=== PATIENT | female | born 1990 | race Caucasian/White ===

== ENCOUNTER 2018-12-27 10:00 | Inpatient (IN) ==
[2018-12-27] MEDS ORDERED: *HR* Nalbuphine 10 MG/ML AMPUL IVP PRN (10:49)
[2018-12-27] MEDS ORDERED: Ondansetron 4 MG/2 ML VIAL IVP PRN (10:49)
[2018-12-27] MEDS ORDERED: Famotidine 20 MG/2 ML VIAL IVP PRN (10:49)
[2018-12-27] MEDS ORDERED: Naloxone 0.4 MG/ML INJ IVP PRN (10:49)
[2018-12-27] MEDS ORDERED: Metoclopramide 10 MG/2 ML VIAL IVP PRN (10:49)
[2018-12-27] MEDS ORDERED: miSOPROStol 25 MCG TABLET VG PRN (10:52)
[2018-12-27] MEDS ORDERED: Ringers Solution, Lactated 1,000 ML IVC SCH (11:00)
[2018-12-27 11:20] LABS: Basophils % 0.2 %; Eosinophils # 0.1 K/mcL (0.0-0.6); Hematocrit 35.8 % (35.3-44.9); Hemoglobin 11.9 g/dL (11.5-15.4); Immature Granulocytes % 0.8 % (0-4); Lymphocytes # 1.4 K/mcL (0.6-4.6); Lymphocytes % 17.1 %; Mean Corpuscular HGB Conc 33.2 g/dL (31.6-35.5); Mean Corpuscular Hemoglobin 29.4 pg (28.0-33.3); Mean Corpuscular Volume 88.4 fL (83.0-100.0); Mean Platelet Volume 12.8 fL (9.4-12.4); Monocytes # 0.5 K/mcL (0.0-1.3); Monocytes % 6.3 %; Neutrophils # 6.2 K/mcL (1.6-8.9); Platelet Count 140 K/mcL (140-400); Red Blood Count 4.05 M/mcL (3.82-4.97); Red Cell Distribution Width 13.8 % (11.5-14.5); Segmented Neutrophils % 74.6 %
[2018-12-27 11:33] LABS: Amphetamine Screen,Urine Negative ng/mL (Cutoff=1000); Barbiturate Screen,Urine Negative ng/mL (Cutoff=200); Benzodiazepines Screen,Urine Negative ng/mL (Cutoff=200); Cannabinoid Screen,Urine Negative ng/mL (Cutoff = 50); Cocaine Screen,Urine Negative ng/mL (Cutoff= 300); Opiate Screen,Urine Negative ng/mL (Cutoff=300); Phencyclidine Screen,Urine Negative ng/mL (Cutoff=25)
--- NOTE | 2018-12-27 13:53 | Event Note ---
Date of Encounter: 12/27/18 Time of Encounter: 13:50 Patient admitted for cholestasis of . On presentation her cervix was fingertip thick and high. Patient with Cervidil with 25 mg of Cytotec vaginally. I just rechecked her cervix. There is been minimal change of her cervix. The cervix itself is very thick. I cannot get all the way in. is ballotable. We will place another Cytotec and then recheck to see if Herman can be placed.
--- NOTE | 2018-12-27 17:52 | Event Note ---
Date of Encounter: 12/27/18 Time of Encounter: 17:50 Patient has had one dose of Cytotec had 1135. She is continued to contract every 2-4 minutes since that time. We have been unable to give a second dose. At last examination her cervix was fingertip and thick. I was able to get through the cervix. At this check I was able to get is fingertip all the way through the cervix. She is now 1 thick and high. A 60 mL Herman was placed with minimal difficulty. Patient tolerated procedure well. heart rate tracing is category 1 by sac cells. Contractions every 2-4 minutes.
--- NOTE | 2018-12-27 17:56 | OB/GYN History & Physical ---
Date of Encounter: 12/27/18 Time of Encounter: 11:00 Assessment and Plan (1) Cholestasis during in third trimester Current visit: No Status: Acute Induction of labor (2) 37 weeks gestation of Current visit: Yes Status: Acute History of Present Illness Chief complaint: induction HPI: Ms. Jones is a 28 year old female scheduled for induction of labor by Dr. Vanegas at 37 weeks for cholestasis of . Patient has history of very long inductions. She states her last labor lasted 29 hours. On examination her cervix was fingertip and thick and very high. We discussed starting with Cytotec as I could not get into the cervical canal. She did wish to do this. She understands it may take time. As soon as we can put a 60 mL Herman and her cervix we will do that for her. She is having no other complaints of any kind. She has no drug allergies. Current medications include vitamins, Zofran, Vistaril and BuSpar. She has no chronic medical conditions. Surgical history includes left arm surgery and tonsillectomy. She has no history of abnormal Pap smears, STDs or pelvic infections. Socially she denies tobacco, alcohol, illicit drug use. Family history is significant for heart disease, hyperlipidemia, hypertension and diabetes. Obstetric history significant for 2 term vaginal deliveries uncomplicated. Past Med Surg Social Fam HX - Past Medical History Medical history: no medical history, other Additional medical history: tachycardia, cysts on thyroid Psychiatric history: no psych history - Past Surgical History Surgical History: other Additional surgical history: plates and screws in left arm, tonsilectomy - Social History Smoking Status: Never smoker Smokeless Tobacco Status: No Alcohol use: none Drug use: none - Family History Mother Living Status: Still Living Hx Family Cardiac Disorders: Yes (HTN) Hx Family Respiratory Disorders: No Hx Family Cancer: No Hx Family GI Disorders: No Hx Family Genitourinary Disorders: No Hx Family Endocrine Disorder: Yes (DM) Hx Family Musculoskeletal Disorders: No Hx Family Neuromuscular Disorders: No Hx Family Neurologic Disorders: No Hx Family HEENT Disorders: No Hx Family Autoimmune Disorders: No Father Living Status: Still Living Hx Family Cardiac Disorders: Yes (CABG x4, high cholesterol, low BP, heart disease) Obstetrical History - Pregnancies : 3 Para: 2 Term: 2 Livin Medications and Allergies Buspirone HCl [Buspar] 7.5 mg PO BID 02/03/19 [History] HydrOXYzine Pamoate [Vistaril] 25 mg PO DAILY PRN 12/27/18 [History] Ondansetron HCl [Zofran] 4 mg PO Q6HR PRN 12/27/18 [History] Vit No.129/Iron/FA [ Tablet] 1 each PO DAILY 12/27/18 [History] Ursodiol 300 mg PO TID 12/27/18 [History] Allergy/AdvReac Type Severity Reaction Status Date / Time No Known Allergies Allergy Verified 06/13/16 17:33 Review of System OB All systems PM: reviewed and no additional remarkable complaints except as stated Exam - Constitutional Constitutional: well developed, well nourished, no acute distress, average body habitus - HEENT HEENT: EOMI, PERRL - Neck Neck exam: full ROM - Lungs Respiratory exam: CTAB - Cardiovascular Cardiovascular exam: RRR - Abdomen Abdomen: Present: bowel sounds normal, gravid, non tender - Extremities Extremities exam: full ROM - Vagina Vagina: Present: normal moisture - Cervix Dilation: 0 Effacement: 0 Station: -4 - Uterus Uterus exam: Present: normal size Results Result Diagrams: 12/27/18 10:50 Abnormal lab results MPV 12.8 fL (9.4-12.4) H 12/27/18 10:50 All other labs normal. - VTE Reasons for not Prescribing Prophylaxis: Treatment not Indicated - Low risk for VTE
[2018-12-28] MEDS ORDERED: Oxytocin 20 units/ LR 1000 mL 20 UNIT/1,000 ML BAG IVC SCH ×2 (02:15→21:54)
[2018-12-28] MEDS ORDERED: *HR* FentaNYL (PF) 100 MCG/2 ML VIAL EP ONE (07:36)
[2018-12-28] MEDS ORDERED: Bupivacaine-MPF 0.25% 10 ML VIAL EP ONE (07:36)
[2018-12-28] MEDS ORDERED: Bupivacaine-MPF 0.25% 10 ML VIAL ONE (07:38)
[2018-12-28] MEDS ORDERED: *HR* FentaNYL (PF) 100 MCG/2 ML VIAL ONE ×3 (07:38→17:47)
[2018-12-28] MEDS ORDERED: Lidocaine -MPF 1% 5 ML AMPUL ONE (07:38)
[2018-12-28] MEDS ORDERED: Epidural Premix (fent/bupiv) 110 ML EP SCH (07:45)
--- NOTE | 2018-12-28 08:24 | Anesthesia Evaluation PreOp ---
Date of Encounter: 12/28/18 Time of Encounter: 07:43 - Past History Planned Operation: YASIR Cardiac History: Arrhythmia (tachycardia) Pulmonary History: Denies Any Significant HX TRIMMER BUFFING WHEEL History: Denies Any Significant HX Other Medical History: Thyroid (cysts bilaterally) Anesthesia History: No Prior Anesthetic Complications (previous YASIR x 2--no complications; denies personal and family h/o GA complications) : Yes Alcohol Use: none Drug use: none Medications and Allergies Buspirone HCl [Buspar] 7.5 mg PO BID 12/27/18 [History] HydrOXYzine Pamoate [Vistaril] 25 mg PO DAILY PRN 12/27/18 [History] Ondansetron HCl [Zofran] 4 mg PO Q6HR PRN 12/27/18 [History] Vit No.129/Iron/FA [ Tablet] 1 each PO DAILY 12/27/18 [History] Ursodiol 300 mg PO TID 12/27/18 [History] Allergy/AdvReac Type Severity Reaction Status Date / Time No Known Allergies Allergy Verified 06/13/16 17:33 - Meds/Allergy Pre-op Review Medications Reviewed: Yes Allergies Reviewed: Yes Beta Blockers on Current Med List: No Anesthesia Results - Labs 12/27/18 10:50 Anesthesia Exam 128/71, HR 85 O2 Sat Height 1.65 m Weight 101.378 kg NPO (# of Hours): solids >8hrs Pain Scale: 7 Pain Scale Used: Numeric (1 - 10) - HEENT Pupil (Motor): Pupils equal Mallampati: II Teeth: Normal Oral Opening: Greater than 3 - TRIMMER BUFFING WHEEL LOC: Oriented TRIMMER BUFFING WHEEL Motor: Normal RUE, Normal LUE, Normal RLE, Normal LLE, Normal Face TRIMMER BUFFING WHEEL Sensory: Normal: RUE, LUE, RLE, LLE, Face - Cardiac Rhythm: Regular Murmur: None - Pulmonary Breath Sounds: bilateral Clear Respiratory Effort: Symmetrical Anesthesia Assess/Plan ASA Score: 2 Level of consciousness: Cooperative, Oriented, Anxious, Restless Anesthetic Plan: Epidural Reason for No Neuroaxial/Regional Block: Other Autologous Blood: No Monitoring Plan: Standard Monitors Recovery Plan: Other
--- NOTE | 2018-12-28 08:27 | Anesthesia Procedures ---
Addendum entered and electronically signed by Richy Blanchard CRNA 12/29/18 01:49: Delivery Date: 12/28/18 Delivery Time: 19:07 Original Note: Date of Encounter: 12/28/18 Time of Encounter: 07:43 Procedures: Anesthesia - Epidural/Spinal Patient ID/Chart reviewed: Yes Patient examined: Yes OB Eval: Gestational age: 37 weeks 1 day OB Eval: : 3 OB Eval: Hx Para: 2 OB Eval: Dilated at (cm): 5 OB Eval: Contractions: Non-stressed pattern Consent Obtained: No Supplemental Oxygen: None/Room Air Site Prep: Aseptic Technique, Sterile prep and drape, Povidone-Iodine 1% Patient position: upright Local Anesthetic: Lidocaine 1% Amount of Local Anesthetic used: 3 Touhy Needle Gauge: 18 Touhy Needle Depth (cm): 7 Catheter Depth at Skin (cm): 12 Test Dose (1.5% Lido + Epi): Volume given (mls): 5 Test Dose Result: Negative Loading Dose: 0.25% Marcaine (mls): 5 Loading Dose: Fentanyl (mcg): 100 Loading Dose Administered: Thru Catheter Infusion Med: 0.125% Bupivacaine w/ 2 mcg/ml Fentanyl Infusion Rate (mls/hr): 14 (w/ demand bolus of 6mL q30min PRN) Catheter Secured in Place: Tegaderm, Tape Interspace Used: L4-L5 Loss of Resistance (RICARDO): Yes Blood: No CSF: No Paresthesia: No Procedure: successful on 1st attempt; although visibly upset & anxious, patient tolerated procedure well; VSS Vitals + FHT's: please see Princess RN's electronic records for VS entry
--- NOTE | 2018-12-28 11:35 | OB Labor Progress Note ---
Date of Encounter: 12/28/18 Time of Encounter: 11:34 Labor Progress Note - Subjective Subjective: Patient feeling much better after her epidural and was able to get some rest. We attempted to rupture earlier right after the epidural but she was still feeling everything and was too uncomfortable patient is now feeling some pressure but no pain with her contractions. - Cervix Cervix: 5/80/-2 AROM clear fluid large amount - Heart Tones Heart Tones: heart tones 140s reactive FSM placed - [place]: IUPC placed, contractions every 2 minutes adequate - Interventions Interventions: Continue Pitocin plan is to anticipate vaginal delivery
[2018-12-28] MEDS ORDERED: *HR* Ropivacaine/PF 0.2% 20 ML VIAL ONE (14:49)
--- NOTE | 2018-12-28 15:36 | Anesthesia Progress Note ---
Date of Encounter: 12/28/18 Time of Encounter: 14:50 Anesthesia Note - Note Note: called to patient bedside to evaluate breakthrough pain; patient describes pain as being localized on L side. patient positioned into LLD position and catheter confirmed to be taped at 11cm jackelyn. 9 mL of 0.2% ropivicaine + 100mcg fentanyl administered. Patient reports improvement in pain. VSS 12/28/18 15:34
--- NOTE | 2018-12-28 17:22 | OB Labor Progress Note ---
Date of Encounter: 12/28/18 Time of Encounter: 17:21 Labor Progress Note - Subjective Subjective: Patient feeling a lot of pressure and beginning to feel her contractions again. - Cervix Cervix: 7-8/90/-1 - Heart Tones Heart Tones: heart tones 140s reactive - [place]: Contractions every 2 minutes adequate - Interventions Interventions: Continue current care anticipate vaginal delivery
--- NOTE | 2018-12-28 18:05 | Anesthesia Progress Note ---
Date of Encounter: 12/28/18 Time of Encounter: 18:03 Anesthesia Note - Note Note: called to patient bedside to evaluate breakthrough pain; patient describes pain as being localized on L side. patient already positioned into LLD position and catheter discovered to be slightly pulled out to 10cm jackelyn at skin. 11mL of 0.2% ropivicaine + 100mcg fentanyl administered given in 2 equally divided doses by 10min. Patient reports only slight improvement in pain. VSS. 12/28/18 18:03
--- NOTE | 2018-12-28 19:39 | OB/GYN Procedure Note ---
Delivery - Delivery Date: 12/28/18 Provider: Joshua Alcala Intrapartum events: prolonged labor- > = 20hr Delivery induction: oxytocin, solis, misoprostol Delivery augmentation: rupture of membranes Delivery monitor: external FHT, external uterine, internal FHT, internal uterine Anesthesia: epidural Quantitated Blood Loss: 300 - (s) A Delivery Date: 12/28/18 Infant Delivery Time: 19:07 Presentation: vertex Position: ROP Route of delivery: vacuum extraction Gender: Female Viability: Viable Pounds: 7 Ounces: 9 Weight Gram: 3.425 kg at 1 minute: 7 at 5 mins: 9 Shoulder Dystocia: encountered Shoulder Dystocia Maneuvers: Nallely maneuver, suprapubic pressure Specimens collected: cord blood - Repair Episiotomy: none Laceration Description: None - Complications Delivery complications: none Delivery comments: Patient is a 28-year-old 3 para 2 at 37 weeks who presented for induction of labor secondary to history of cholestasis in . Patient's bile acids were elevated and she was scheduled for an induction patient came in on the third at 10 AM she had an unfavorable cervix were finally able to get a Solis catheter in her and Cytotec. Patient progressed very slowly patient was still 5 cm this morning and we took over. Patient had received an epidural when she was comfortable she was artificially ruptured large amounts of clear fluid noted. She was augmented with Pitocin patient progressed to complete patient pushed for approximately 40-60 minutes was having decelerations down into the 60s but was return to baseline the patient's maternal efforts was minimal at this point patient has been in labor for 31 hours and was exhausted decided this time due to the decelerations and maternal effort that a vacuum would be required. A Kiwi vacuum was applied pumped up to 500 mmHg with the os with 2 involuntary pop offs were able to deliver a viable male infant in right occiput posterior presentation at 1907. We did have a shoulder dystocia approximately 25 seconds Nallely and suprapubic pressure was used to get that anterior shoulder to deliver. There was no nuchal cord, no meconium, was bulb suctioned on the abdomen, Apgars were 7 at 1 minute, 9 at one weight was 7 lbs. 9 oz. Placenta was then delivered spontaneously with a three-vessel cord, OB Dr Alcala, anesthesia epidural, estimated blood loss was 300 mL. Perineum cervix and vagina was visualized intact. Patient tolerated the delivery well 's head did have an excoriation from the vacuum restoration silversmith was called to assess the baby. Patient will be observed 2 hours before being taken to the floor - Disposition Mom disposition: stable in LDR disposition: stable in LDR
[2018-12-28] MEDS ORDERED: Acetaminophen 325 MG TABLET PO PRN (21:54)
[2018-12-28] MEDS ORDERED: hydrOXYzine pamoate 25 MG CAPSULE PO PRN (21:54)
[2018-12-28] MEDS ORDERED: Measles/Mumps/Rubella Vacc 0.5 ML VIAL SQ PRN (21:54)
[2018-12-28] MEDS: Ibuprofen 600 MG TABLET PO PRN (23:09)
[2018-12-29 08:08] LABS: Basophils % 0.2 %; Eosinophils # 0.1 K/mcL (0.0-0.6); Eosinophils % 0.8 %; Hematocrit 32.5 % (35.3-44.9); Hemoglobin 10.4 g/dL (11.5-15.4); Immature Granulocytes % 0.7 % (0-4); Lymphocytes # 1.7 K/mcL (0.6-4.6); Lymphocytes % 13.2 %; Mean Corpuscular Volume 90.5 fL (83.0-100.0); Mean Platelet Volume 12.8 fL (9.4-12.4); Monocytes % 7.3 %; Neutrophils # 10.2 K/mcL (1.6-8.9); Platelet Count 121 K/mcL (140-400); Red Blood Count 3.59 M/mcL (3.82-4.97); Red Cell Distribution Width 13.6 % (11.5-14.5); Segmented Neutrophils % 77.8 %
[2018-12-29] MEDS: Ibuprofen 600 MG TABLET PO PRN ×3 (08:41→21:48)
[2018-12-29] MEDS: Prenatal Vit/FA 1 EACH TABLET PO SCH (08:41)
[2018-12-29] MEDS ORDERED: NON-FORMULARY MEDICATION 1 EACH EACH (Prenatal Vit No.129/Iron/Fa [Prenatal One Daily Tabl PO SCH (09:00)
--- NOTE | 2018-12-29 09:49 | OB/GYN Progress Note ---
Date of Encounter: 12/29/18 Time of Encounter: 09:46 - Assessment and Plan (1) Cholestasis of Current Visit: Yes Status: Acute Continue Vistaril as needed for itching. Follow up as scheduled. Qualifiers: Trimester: unspecified trimester Qualified Code(s): O26.619 - Liver and biliary tract disorders in , unspecified trimester; K83.1 - Obstruction of bile duct (2) Vaginal delivery Current Visit: No Status: Acute Patient meeting day one milestones. Pain well-controlled with prescribed medications. Voiding without difficulty, tolerating regular diet. No bowel movement yet. Anticipate discharge tomorrow. Patient would like to wait for discharge until infant is discharged tomorrow. (3) anemia Current Visit: No Status: Acute Continue iron on discharge (4) Breast feeding status of mother Current Visit: No Status: Acute support as needed. Patient states she needs a prescription for breast pump. Subjective - Subjective Principal diagnosis: Status post vaginal delivery Interval history: Delivery Date: 12/28/18 Provider: Joshua Alcala Intrapartum events: prolonged labor- > = 20hr Delivery induction: oxytocin, solis, misoprostol Delivery augmentation: rupture of membranes Delivery monitor: external FHT, external uterine, internal FHT, internal uterine Anesthesia: epidural Quantitated Blood Loss: 300 - (s) Infant A Infant Delivery Date: 12/28/18 Delivery Time: 19:07 Presentation: vertex Position: ROP Route of delivery: vacuum extraction Gender: Female Viability: Viable Pounds: 7 Ounces: 9 Weight Gram: 3.425 kg at 1 minute: 7 at 5 mins: 9 Shoulder Dystocia: encountered Shoulder Dystocia Maneuvers: Nallely maneuver, suprapubic pressure Specimens collected: cord blood - Repair Episiotomy: none Laceration Description: None - Complications Delivery complications: none Delivery comments: Patient is a 28-year-old 3 para 2 at 37 weeks who presented for induction of labor secondary to history of cholestasis in . Patient's bile acids were elevated and she was scheduled for an induction patient came in on the third at 10 AM she had an unfavorable cervix were finally able to get a Solis catheter in her and Cytotec. Patient progressed very slowly patient was still 5 cm this morning and we took over. Patient had received an epidural when she was comfortable she was artificially ruptured large amounts of clear fluid noted. She was augmented with Pitocin patient progressed to complete patient pushed for approximately 40-60 minutes was having decelerations down into the 60s but was return to baseline the patient's maternal efforts was minimal at this point patient has been in labor for 31 hours and was exhausted decided this time due to the decelerations and maternal effort that a vacuum would be required. A Kiwi vacuum was applied pumped up to 500 mmHg with the os with 2 involuntary pop offs were able to deliver a viable male in right occiput posterior presentation at 1907. We did have a shoulder dystocia approximately 25 seconds Nallely and suprapubic pressure was used to get that anterior shoulder to deliver. There was no nuchal cord, no meconium, was bulb suctioned on the abdomen, Apgars were 7 at 1 minute, 9 at one infant weight was 7 lbs. 9 oz. Placenta was then delivered spontaneously with a three-vessel cord, OB Dr Alcala, anesthesia epidural, estimated blood loss was 300 mL. Perineum cervix and vagina was visualized intact. Patient tolerated the delivery well infant's head did have an excoriation from the vacuum sheet layer was called to assess the baby. Patient will be observed 2 hours before being taken to the floor - Disposition Mom disposition: stable in LDR [place] disposition: stable in LDR Patient reports: appetite normal, voiding normally, pain well controlled, ambulating normally [place]: doing well, nursing well Objective - Latest Vital Signs Latest vital signs: Vital Signs Temp Pulse Resp BP Pulse Ox 12/29/18 07:30 97.8 F 52 16 119/63 12/29/18 00:35 98.2 F 61 14 119/61 96 12/28/18 23:30 98.5 F 65 18 116/60 96 12/28/18 22:00 99.3 F 95 14 115/64 96 Intake and Output 12/28/18 12/29/18 12/29/18 23:59 07:59 15:59 Intake Total 500 / 500 Output Total 850 / 850 750 / 750 Balance -850 / -850 -250 / -250 Intake: Oral 500 / 500 Output: Urine 850 / 850 750 / 750 Other: Weight 100 kg - Exam Lungs: bilateral: normal Chest: Normal S1, Normal S2 Extremities: Present: normal Abdomen: Present: normal appearance, soft Uterus: Present: normal, firm Uterus Position: At Umbilicus, Midline - Labs Labs: Laboratory Results - last 24 hr 12/29/18 07:50 WBC 13.1 H D RBC 3.59 L Hgb 10.4 L D Hct 32.5 L MCV 90.5 MCH 29.0 MCHC 32.0 RDW 13.6 Plt Count 121 L MPV 12.8 H Immature Gran % 0.7 Seg Neutrophils % 77.8 Lymphocytes % 13.2 Monocytes % 7.3 Eosinophils % 0.8 Basophils % 0.2 Neutrophils # 10.2 H Lymphocytes # 1.7 Monocytes # 1.0 Eosinophils # 0.1 Basophils # 0.0
[2018-12-30] MEDS: Ibuprofen 600 MG TABLET PO PRN ×2 (04:20→10:28)
[2018-12-30 08:10] VITALS: BP 106/51
--- NOTE | 2018-12-30 09:00 | Discharge Summary ---
Date of Encounter: 12/30/18 Time of Encounter: 08:58 - Discharge Diagnosis (1) Cholestasis of Priority: Secondary Status: Acute Qualifiers: Trimester: unspecified trimester Qualified Code(s): O26.619 - Liver and biliary tract disorders in , unspecified trimester; K83.1 - Obstruction of bile duct (2) Breast feeding status of mother Priority: Secondary Status: Acute (3) Vaginal delivery Priority: Primary Status: Acute Comments: Pt meeting all milestones. She reports feeling swollen but otherwise well. Plan to get [facility] labs prior to discharge due to swelling and drop in platelet count . Anticipate discharge home today. - Discharge Medications Prescriptions: Breast Pump [BREAST PUMP] 1 each .ROUTE AD #1 each Docusate [Colace] 100 mg PO BID #60 capsule Ibuprofen [Ibu] 600 mg PO Q6H PRN #60 tablet PRN Reason: Pain Home Medications: Buspirone HCl [Buspar] 7.5 mg PO BID 12/27/18 [History] Vit No.129/Iron/FA [ One Daily Tablet] 1 each PO DAILY 12/27/18 [History] Breast Pump [BREAST PUMP] 1 each .ROUTE AD #1 each 12/29/18 [Rx] Ibuprofen [Ibu] 600 mg PO Q6H PRN #60 tablet 12/29/18 [Rx] Acetaminophen [Tylenol] 650 mg PO Q6H PRN tablet 12/30/18 [Rx] Docusate [Colace] 100 mg PO BID #60 capsule 12/30/18 [Rx] Allergies/Adverse Reactions: Allergy/AdvReac Type Severity Reaction Status Date / Time No Known Allergies Allergy Verified 06/13/16 17:33 Data Procedures and tests throughout hospitalization: Laboratory Tests 12/27/18 12/27/18 12/29/18 10:50 10:50 07:50 WBC 8.3 13.1 H D RBC 4.05 3.59 L Hgb 11.9 10.4 L D Hct 35.8 32.5 L MCV 88.4 90.5 MCH 29.4 29.0 MCHC 33.2 32.0 RDW 13.8 13.6 Plt Count 140 121 L MPV 12.8 H 12.8 H Immature Gran % 0.8 0.7 Seg Neutrophils % 74.6 77.8 Lymphocytes % 17.1 13.2 Monocytes % 6.3 7.3 Eosinophils % 1.0 0.8 Basophils % 0.2 0.2 Neutrophils # 6.2 10.2 H Lymphocytes # 1.4 1.7 Monocytes # 0.5 1.0 Eosinophils # 0.1 0.1 Basophils # 0.0 0.0 Urine Opiates Screen Negative Ur Barbiturates Screen Negative Ur Phencyclidine Scrn Negative Ur Amphetamines Screen Negative U Benzodiazepines Scrn Negative Urine Cocaine Screen Negative U Marijuana (THC) Screen Negative Ur Drug Screen Interp See Below Date of admission: 12/27/18 10:35 Primary care physician: Melina Lynch CNP Consults: 12/28/18 21:54 Consult to Manager Community Relations [CONS] Routine Comment: Vaginal delivery, consult needed Discharging clinician: Anastasia Elias Anticipated date of discharge: 12/30/18 - Patient Status Disposition: Home, Self-Care Condition: Good Functional capacity at discharge: independent ambulation Overall status at discharge: patient is progressing back to baseline - Discharge Instructions Follow Up With: Melina Lynch CNP [Primary Care Provider] - Daljit Vanegas MD [Partnered Physician] - - Diet and Activity Activity: increase activity as tolerated Diet: regular diet Hospital Course Reason for admission: induction of labor Delivery: vacuum extraction Episiotomy: none Laceration: none Other procedures: none complications: none Discharge diagnosis: IUP at term delivered [place] baby: female Hospital course: - Delivery Date: 12/28/18 Provider: Joshua Alcala Intrapartum events: prolonged labor- > = 20hr Delivery induction: oxytocin, solis, misoprostol Delivery augmentation: rupture of membranes Delivery monitor: external FHT, external uterine, internal FHT, internal uterine Anesthesia: epidural Quantitated Blood Loss: 300 - (s) A Infant Delivery Date: 12/28/18 Delivery Time: 19:07 Presentation: vertex Position: ROP Route of delivery: vacuum extraction Gender: Female Viability: Viable Pounds: 7 Ounces: 9 Weight Gram: 3.425 kg at 1 minute: 7 at 5 mins: 9 Shoulder Dystocia: encountered Shoulder Dystocia Maneuvers: Nallely maneuver, suprapubic pressure Specimens collected: cord blood - Repair Episiotomy: none Laceration Description: None - Complications Delivery complications: none Time Attestation: Total time spent providing and/or coordinating discharge services: Time Spent: Less than 30 minutes Exam - Constitutional Vitals: Temp Pulse Resp BP Pulse Ox 98 F 61 16 106/51 98 12/30/18 08:09 12/30/18 08:09 12/30/18 08:09 12/30/18 08:09 12/30/18 08:09 General appearance IM: A&O X 3 - Respiratory Respiratory exam: Present: CTAB - Cardiovascular Cardiovascular exam IM: Present: RRR - GI/Abdominal GI/Abdominal exam IM: soft, no peritoneal signs - Uterine Tone: Firm Uterus Position: At Umbilicus - Extremities Exam Extremities exam IM: Present: pedal edema (1+ bilateral upper and lower extremeties) - Neurological Exam Neurological exam: normal gait, oriented X3 - Psychiatric Additional comments: reports good mood
[2018-12-30] MEDS: Prenatal Vit/FA 1 EACH TABLET PO SCH (10:00)
[2018-12-30 10:50] LABS: Basophils % 0.1 %; Eosinophils # 0.1 K/mcL (0.0-0.6); Eosinophils % 1.5 %; Hematocrit 32.9 % (35.3-44.9); Hemoglobin 10.8 g/dL (11.5-15.4); Immature Granulocytes % 1.1 % (0-4); Lymphocytes # 1.3 K/mcL (0.6-4.6); Lymphocytes % 13.7 %; Mean Corpuscular HGB Conc 32.8 g/dL (31.6-35.5); Mean Corpuscular Hemoglobin 29.4 pg (28.0-33.3); Mean Corpuscular Volume 89.6 fL (83.0-100.0); Mean Platelet Volume 12.2 fL (9.4-12.4); Monocytes # 0.5 K/mcL (0.0-1.3); Neutrophils # 7.5 K/mcL (1.6-8.9); Platelet Count 136 K/mcL (140-400); Red Blood Count 3.67 M/mcL (3.82-4.97); Red Cell Distribution Width 13.7 % (11.5-14.5); Segmented Neutrophils % 78.6 %
[2018-12-30 11:10] LABS: Alanine Aminotransferase 24 Units/L (7-52); Aspartate Amino Transferase 26 Units/L (13-39); BUN/Creatinine Ratio 22 (6-26); Blood Urea Nitrogen 8 mg/dL (6-20); Lactate Dehydrogenase 190 Units/L (140-271); eGFR For Non-African Americans > 60 (> 60)
== END 2018-12-30 13:07 | disposition home or self-care (01) | DRG 805 ==
LOC: 1NENULAB 10:35 → 1NENUOBS 12-28 21:44
PROVIDERS: ADMIT Obstetrics & Gynecology; ATTEND Obstetrics & Gynecology